=== PATIENT | female | born 1975 | race Caucasian/White ===

== ENCOUNTER 2017-03-20 02:38 | Emergency (ER) | payer BC ==
[~2017-03-20] VITALS: Ht 157.5 cm; Wt 56.4 kg
[~2017-03-20 02:38] MED LIST: ALBUAER19 INH; CETI10TA84 PO; EPP3/2 IM; FLNIN/ NAE; SNG10 PO
[2017-03-20 02:47] VITALS: TEMP 36.4; Ht 157.5 cm; Wt 56.4 kg
[2017-03-20] MEDS ORDERED: VNTHFA/IN INH (03:08)
[2017-03-20] MEDS ORDERED: SODIUM CHLORIDE 0.9% 1000ML 1,000 ML IV STA (03:13)
[2017-03-20] MEDS ORDERED: ONDANSETRON INJ 2 MG/ML 2 ML VIAL IV STA (03:13)
[2017-03-20 03:48] LABS: BASO % 0.8 %; BASO ABS # 0.08 K/uL (0-0.2); COMPLETE YES; EOS % 6.7 %; IG% 0.2 %; LYMPH % 39.4 %; LYMPH ABS # 4.05 K/uL (1.2-3.4); MEAN CELL VOLUME 91.7 fL (80-100); MEAN CORPUSCULAR HEMOGLOBIN 29.8 pg (25-34); MEAN CORPUSCULAR HGB CONC 32.4 g/dl (32-36); MEAN PLATELET VOLUME 9.6 fL (7.4-10.4); MONO % 6.5 %; NEUT % 46.4 %; PLATELET COUNT 445 K/uL (130-400); RED BLOOD COUNT 4.47 M/uL (4.2-5.4); WHITE BLOOD COUNT 10.28 K/uL (4.8-10.8)
[2017-03-20 04:06] LABS: BUN/CREATININE RATIO 17.6 (10-20); CALCIUM 8.9 mg/dl (8.5-10.1); CREATININE 0.82 mg/dl (0.60-1.20); POTASSIUM 3.7 mmol/L (3.5-5.1)
[2017-03-20 04:17] LABS: ALB/GLOB RATIO 0.9 (0.9-2); THYROID STIMULATING HORMONE 5.76 uIu/ml (0.300-4.500)
[2017-03-20 04:21] LABS: PREG INTERNAL NEGATIVE QC NEG CLEAR BACKGROUND; PREG INTERNAL POSITIVE QC POS CONTROL LINE
[2017-03-20] MEDS ORDERED: AMOXICILLIN/CLAVULANATE TAB 875 MG TAB PO ONE (05:00)
[2017-03-20] MEDS ORDERED: AMOX875T PO (05:00)
[2017-03-20] MEDS ORDERED: METH4PAK PO (05:00)
--- NOTE | 2017-03-20 05:03 | EMERGENCY ROOM VISIT NOTE ---
History First contact with patient: 02:53 Chief Complaint: HEADACHE Stated Complaint: MIGRAINE,BLURRY VISION,UPSET STOMACH, History of Present Illness The patient is a 41 year old female who presents to the Emergency Room with complaints of several headaches over the past few weeks. The patient states that over the past 3 weeks, she has had occasional difficulty opening her left eye when she wakes up in the morning. The symptoms resolve on their own. She states that she has also had intermittent headaches. She saw a neurologist for these symptoms and they scheduled her for an MRI and MRA next week. She states that today, she developed a severe headache associated with nausea and dizziness. The headache has subsided, but she states that she has some continued dizziness. She took Advil earlier this evening. She has a history of pituitary surgery. She had an MRI in 2016 and states that it was normal. She denies any neck pain/stiffness, confusion, or slurred speech. She denies any discomfort at this time. Review of Systems A complete 10 point review of systems was reviewed with the patient with pertinent positives and negatives as per history of present illness. All else were negative. Past Medical/Surgical History Medical Problems: (1) Celiac disease Surgical Problems: (1) Previous section Social History Smoking Status: Never Smoker Alcohol Use: none Current/Historical Medications Scheduled Amoxicillin & Pot Clavulanate (Augmentin 875-125 mg), 1 TAB PO BID Cetirizine (Zyrtec), 10 MG PO HS Fluticasone Propionate (Fluticasone Propionate), 2 SPRAYS DAYSI HS Methylprednisolone (Medrol Dosepak), 0 PO DAILY Montelukast Sod (Montelukast Sodium), 10 MG PO QAM Scheduled PRN Albuterol Hfa (Ventolin Hfa), 2 PUFFS INH Q4H PRN for RESCUE/ASTHMA Epinephrine (Epipen 2-Nathan), 0.3 MG IM UD PRN for ALLERGIC REACTION Allergies Uncoded Allergies: FOOD POLLEN ALLERGY SYNDROME (Allergy, Unknown, Localized swelling around mouth/itchy throat., 08/10/14) Reported by PT. Allergy related to certain tree pollens found in food. Physical Exam Vital Signs Date Time Temp Pulse Resp B/P (MAP) Pulse Ox O2 Delivery O2 Flow Rate FiO2 03/20/17 05:16 64 16 100/59 99 03/20/17 04:30 61 16 118/77 100 Room Air 03/20/17 02:47 36.4 57 18 137/81 100 Room Air Physical Exam VITALS: Vitals are noted on the nurse's note and reviewed by myself. Vital signs stable. GENERAL: This is a 41-year-old female, in no acute distress, nondiaphoretic, well-developed well-nourished. SKIN: No rashes noted. HEAD: Normocephalic atraumatic. EARS: External auditory canals clear, tympanic membranes pearly green without erythema or effusion bilaterally. EYES: Pupils equal round and reactive to light and accommodation. Conjunctivae without injection, sclerae without icterus. Extraocular movements intact. NOSE: Patent, turbinates without inflammation or discharge. No sinus tenderness. MOUTH: Mucous membranes moist. Tonsils are not enlarged. Pharynx without erythema or exudate. NECK: Supple without nuchal rigidity. No lymphadenopathy. No meningismus. HEART: Regular rate and rhythm without murmurs gallops or rubs. LUNGS: Clear to auscultation bilaterally without wheezes, rales or rhonchi. MUSCULOSKELETAL: Full range of motion and strength 5/5 throughout. NEURO: Patient was alert and oriented to person place and time. Normal sensation to light and sharp touch. Deep tendon reflexes 2+ throughout. No focal neurological deficits. Medical Decision & Procedures ER Provider Diagnostic Interpretation: CT HEAD: No evidence of acute intracranial abnormality. Extensive paranasal sinus disease involving the ethmoid, frontal, sphenoid, and visualized maxillary sinuses. Addendum: Air-fluid level in the left frontal sinus may indicate component of acute sinusitis. 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 Correlate clinically. Radiologist: Rhina Hunt MD Laboratory Results 03/20/17 03:30 Red Blood Count 4.47, Mean Corpuscular Volume 91.7, Mean Corpuscular Hemoglobin 29.8, Mean Corpuscular Hemoglobin Concent 32.4, Mean Platelet Volume 9.6, Neutrophils (%) (Auto) 46.4, Lymphocytes (%) (Auto) 39.4, Monocytes (%) (Auto) 6.5, Eosinophils (%) (Auto) 6.7, Basophils (%) (Auto) 0.8, Neutrophils # (Auto) 4.77, Lymphocytes # (Auto) 4.05, Monocytes # (Auto) 0.67, Eosinophils # (Auto) 0.69, Basophils # (Auto) 0.08 03/20/17 03:30 Test 03/20/17 03:30 White Blood Count 10.28 K/uL (4.8-10.8) Red Blood Count 4.47 M/uL (4.2-5.4) Hemoglobin 13.3 g/dL (12.0-16.0) Hematocrit 41.0 % (37-47) Mean Corpuscular Volume 91.7 fL (80-100) Mean Corpuscular Hemoglobin 29.8 pg (25-34) Mean Corpuscular Hemoglobin Concent 32.4 g/dl (32-36) Platelet Count 445 K/uL (130-400) Mean Platelet Volume 9.6 fL (7.4-10.4) Neutrophils (%) (Auto) 46.4 % Lymphocytes (%) (Auto) 39.4 % Monocytes (%) (Auto) 6.5 % Eosinophils (%) (Auto) 6.7 % Basophils (%) (Auto) 0.8 % Neutrophils # (Auto) 4.77 K/uL (1.4-6.5) Lymphocytes # (Auto) 4.05 K/uL (1.2-3.4) Monocytes # (Auto) 0.67 K/uL (0.11-0.59) Eosinophils # (Auto) 0.69 K/uL (0-0.5) Basophils # (Auto) 0.08 K/uL (0-0.2) RDW Standard Deviation 45.6 fL (36.4-46.3) RDW Coefficient of Variation 13.6 % (11.5-14.5) Immature Granulocyte % (Auto) 0.2 % Immature Granulocyte # (Auto) 0.02 K/uL (0.00-0.02) Anion Gap 6.0 mmol/L (3-11) Est Creatinine Clear Calc Drug Dose 72.2 ml/min Estimated GFR () 103.7 Estimated GFR (Non- 89.5 BUN/Creatinine Ratio 17.6 (10-20) Calcium Level 8.9 mg/dl (8.5-10.1) Total Bilirubin 0.6 mg/dl (0.2-1) Aspartate Amino Transf (AST/SGOT) 56 U/L (15-37) Alanine Aminotransferase (ALT/SGPT) 48 U/L (12-78) Alkaline Phosphatase 90 U/L (45-117) Total Protein 7.9 gm/dl (6.4-8.2) Albumin 3.7 gm/dl (3.4-5.0) Globulin 4.2 gm/dl (2.5-4.0) Albumin/Globulin Ratio 0.9 (0.9-2) Thyroid Stimulating Hormone (TSH) 5.760 uIu/ml (0.300-4.500) Human Chorionic Gonadotropin, Qual NEG (NEG) Medications Administered Medications (Trade) Dose Ordered Sig/Tania Route Start Time Stop Time Status Last Admin Dose Admin Ondansetron HCl (Zofran Inj) 4 mg NOW STAT IV 03/20/17 03:13 03/20/17 03:15 DC 03/20/17 03:35 4 MG Sodium Chloride 1,000 ml @ 999 mls/hr Q1H1M STAT IV 03/20/17 03:13 03/20/17 04:13 DC 03/20/17 03:35 999 MLS/HR Amoxicillin/ Clavulanate Potassium (Augmentin Tab) 875 mg ONE ONCE PO 03/20/17 05:00 03/20/17 05:01 DC 03/20/17 05:16 875 MG ED Course The patient was evaluated as above. Labs were drawn and IV access was obtained. Patient was medicated with 1 L normal saline solution and [address] of the head was performed and read by radiology as above. Patient was reevaluated and states her symptoms have improved. Findings were discussed with the patient. Discharge instructions were reviewed with the patient. The patient verbalized understanding of my assessment and treatment plan and was discharged home in good condition. Medical Decision The differential diagnosis includes acute intracranial bleed, meningitis, encephalitis, mass or mass effect, sinusitis, infection, tumor, MS, headache, temporal arteritis and carbon monoxide exposure, and migraine. The patient is a 41-year-old female who presents today complaining of headache and intermittent visual symptoms. Neurological exam is normal today. Labs were unremarkable. CT head did not show any acute findings, but did show extensive sinus disease and evidence of acute sinusitis. The patient will be treated for this, as it may be contributing to her symptoms. However, given the patient's intermittent vision difficulties, she certainly does need further workup as an outpatient. She has an MRI and MRA scheduled for next week. She will follow-up with the neurologist after this. She is pain-free at this time. She was encouraged to return here if she has worsening symptoms. Based on the patient's presentation and work up, I feel the patient is stable for outpatient treatment. The patient was educated to return to the emergency department for any worsening of their current condition or new/concerning symptoms. She will follow up with her neurologist and PCP. Medication reconciliation: I attest that I have personally reviewed the patient 's current medication list. Blood pressure screening: Patient was found to have normal blood pressure on screening and does not require follow-up. Impression Primary Impression: Headache Departure Information Dispostion Home / Self-Care Condition GOOD Prescriptions Methylprednisolone (MEDROL DOSEPAK) 4 Mg Nathan 0 PO DAILY, #1 PKT Prov: Flower Mark PA-C 03/20/17 Amoxicillin & Pot Clavulanate (Augmentin 875-125 mg) 1 Tab Tab 1 TAB PO BID for 10 Days, #20 TAB Prov: Flower Mark PA-C 03/20/17 Referrals No Doctor, Assigned (PCP) Patient Instructions My [facility] Additional Instructions You were prescribed Augmentin to be taken twice daily. This is an antibiotic. All antibiotics have the potential to cause diarrhea. Stop this medication and contact a medical provider if you were to develop any significant adverse side effects including: wheezing, shortness of breath, passing out, vomiting, or a diffuse rash. Always take antibiotics as directed and COMPLETE the ENTIRE course regardless of the improvement of your symptoms. You have been prescribed a Medrol Dosepak. This is a steroid which will help decrease your inflammation. Take the medicine as prescribed. Take the ENTIRE 6 day course of the steroids. Follow-up with your neurologist and primary care provider as scheduled. Return to the emergency department with worsening headache, numbness or weakness , fevers or any other new/concerning symptoms. Problem Qualifiers Primary Impression: Headache Headache type: unspecified Headache chronicity pattern: acute headache Intractability: not intractable Qualified Codes: R51 - Headache
[2017-03-20 05:16] VITALS: BP 100/59; PULSE 64; O2SAT 99
--- NOTE | 2017-03-20 07:18 | DIAGNOSTIC IMAGING REPORT ---
HEAD WITHOUT CONTRAST (CT) CT DOSE: 537.48 mGy.cm HISTORY: headaches, vision changes, hx pituitary surgery TECHNIQUE: Multiple axial CT images of the head were obtained without contrast. Comparison: Head CT 08/08/2014. Findings: No acute intracranial hemorrhage, midline shift, mass, large territorial ischemia or abnormal extra-axial collection. The calvarium is intact. Mastoid air cells and middle ear cavities are clear. Extensive maxillary, ethmoid and frontal sinus disease is present with expansion of the aforementioned sinuses. Underlying polyposis is suspected, notably within the right nasopharynx. Soft tissues are unremarkable. Orbits are symmetric. IMPRESSION: 1. No acute intracranial abnormality. 2. Extensive paranasal sinus disease with suspected polyposis of the nasopharynx. This could be correlated with direct visualization. Electronically signed by: Mark Starr 03/20/2017 7:17 AM Dictated Date/Time: 03/20/2017 7:14 AM
== END 2017-03-20 05:18 | disposition home or self-care (01) ==
LOC: C.EDB 02:39
DX: R51 Headache (principal); K90.0 Celiac disease; Z79.899 Other long term (current) drug therapy; Z91.018 Allergy to other foods

== ENCOUNTER 2017-04-20 15:58 | Emergency (ER) | payer BC ==
[~2017-04-20] VITALS: Ht 160 cm; Wt 54.3 kg
[~2017-04-20 15:58] MED LIST changes: -ALBUAER19 INH; +VNTHFA/IN INH
[2017-04-20 16:15] VITALS: TEMP 36.6; Ht 160 cm; Wt 54.3 kg
[2017-04-20] MEDS ORDERED: SODIUM CHLORIDE 0.9% 1000ML 1,000 ML IV STA (16:34)
[2017-04-20] MEDS ORDERED: ONDANSETRON INJ 2 MG/ML 2 ML VIAL IV STA (16:34)
--- NOTE | 2017-04-20 16:39 | EMERGENCY ROOM VISIT NOTE ---
History First contact with patient: 16:23 Chief Complaint: VOMITING Stated Complaint: VOMITING FOR 24 HOURS History of Present Illness The patient is a 41 year old female who presents to the Emergency Room via private vehicle with complaints of "vomiting for 24 hours". The patient states that yesterday she was at [place], and felt slightly nauseous on the car ride there. She states that she was able to enjoy herself at the park, and ate a salad at a gluten-free/allergy sensitive restaurant. She states that on the drive home, around 10:30 PM she became nauseous. Shoulder thereafter she began to vomit. She states that she vomited 3 times in the car ride home. And then vomited approximately 8 times today. Every time she tries to eat or drink she vomits. She has had 2 doses of Pepto-Bismol, and ibuprofen without relief. The only 2 symptoms are nausea and vomiting. She denies any abdominal pain, diarrhea or constipation, chest pain, shortness of breath, fevers or chills. She also has a rash on the medial aspect of the distal legs which she notes she receives every time she goes to an amusement park. Review of Systems A complete 10-point Review of Systems was discussed with the patient, with pertinent positives and negatives listed in the History of Present Illness. All remaining Review of Systems questions can be considered negative unless otherwise specified. Past Medical/Surgical History Medical Problems: (1) Celiac disease Surgical Problems: (1) Previous section Family History No pertinent. Social History Smoking Status: Never Smoker Alcohol Use: none Patient currently lives at home and is employed. Current/Historical Medications Scheduled Cetirizine (Zyrtec), 10 MG PO HS Fluticasone Propionate (Fluticasone Propionate), 2 SPRAYS DAYSI HS Montelukast Sod (Montelukast Sodium), 10 MG PO QAM Ondasetron Odt (Zofran Odt), 4 MG SL Q6H Scheduled PRN Albuterol Hfa (Ventolin Hfa), 2 PUFFS INH Q4H PRN for RESCUE/ASTHMA Epinephrine (Epipen 2-Nathan), 0.3 MG IM UD PRN for ALLERGIC REACTION Physical Exam Vital Signs Date Time Temp Pulse Resp B/P (MAP) Pulse Ox O2 Delivery O2 Flow Rate FiO2 04/20/17 22:21 68 16 114/72 98 04/20/17 20:48 72 20 112/70 98 Room Air 04/20/17 19:50 60 20 115/72 98 Room Air 04/20/17 18:20 62 20 112/70 98 Room Air 04/20/17 16:55 98 Room Air 04/20/17 16:15 36.6 70 20 112/81 98 Room Air Physical Exam VITAL SIGNS - Vital signs and nursing notes were reviewed. Afebrile, normotensive, non-tachycardic and is saturating well on room air 98%. GENERAL -41-year-old female appearing her stated age who is in no acute distress. Communicates well with provider and answers questions appropriately. SKIN - there is a nonraised erythematous rash on the medial aspect of the inferior legs bilaterally. HEAD - NC/AT. EYES - PERRL with EOMI bilaterally. Sclera anicteric. Palpebral conjunctiva pink and moist with no injection noted. EARS - No deformities of external structures noted on gross examination bilaterally. NOSE - Midline and without cyanosis. No epistaxis or purulent drainage noted. MOUTH/OROPHARYNX - Without perioral cyanosis. Buccal mucosa pink and moist and without leukoplakia. Tongue midline with equal elevation of palate bilaterally. No tonsillar hypertrophy, erythema, or exudates noted. Fair dentition noted. NECK - Neck with FROM. Supple to palpation. No lymphadenopathy noted. No nuchal rigidity. LUNGS - Chest wall symmetric without accessory muscle use, intercostals retractions, or central cyanosis. Normal vesicular breath sounds CTA B/L. No wheezes, rales, or rhonchi appreciated. CARDIAC - RRR with S1/S2. No murmur, rubs, or gallops appreciated. ABDOMEN - Abdominal contour without pulsations or visible masses. BS normoactive all four quadrants. No tenderness, palpable masses, hepatosplenomegaly, or ascites noted. EXTREMITIES - No clubbing or peripheral cyanosis. Faint rash on the medial aspect of the legs. NEUROLOGIC - Cranial nerves II through XII grossly intact. Sensory intact to light touch throughout. PSYCH - A&Ox3 and cooperates fully with examiner. Pt is very pleasant and interacts well with examiner. Medical Decision & Procedures ER Provider Diagnostic Interpretation: ABDOMINAL ULTRASOUND, RIGHT UPPER QUADRANT HISTORY: Elevated bilirubin, nausea, emesis. COMPARISON: None. FINDINGS: Pancreas: Not well visualized due to overlying bowel gas. Liver: Unremarkable. Gallbladder: [place] small amount of sludge within the gallbladder. No gallstones. No gallbladder wall thickening. CBD: 2 mm. Right kidney: No hydronephrosis. IMPRESSION: Questionable small amount of sludge within the gallbladder. No gallbladder wall thickening. No gallstones. Electronically signed by: Mj Ward M.D. 04/20/2017 8:55 PM Dictated Date/Time: 04/20/2017 8:53 PM Laboratory Results 04/20/17 16:47 Red Blood Count 4.31, Mean Corpuscular Volume 91.2, Mean Corpuscular Hemoglobin 31.1, Mean Corpuscular Hemoglobin Concent 34.1, Mean Platelet Volume 9.9, Neutrophils (%) (Auto) 70.9, Lymphocytes (%) (Auto) 19.9, Monocytes (%) (Auto) 6.1, Eosinophils (%) (Auto) 2.5, Basophils (%) (Auto) 0.5, Neutrophils # (Auto) 6.28, Lymphocytes # (Auto) 1.76, Monocytes # (Auto) 0.54, Eosinophils # (Auto) 0.22, Basophils # (Auto) 0.04 04/20/17 16:47 Test 04/20/17 16:47 04/20/17 16:56 White Blood Count 8.85 K/uL (4.8-10.8) Red Blood Count 4.31 M/uL (4.2-5.4) Hemoglobin 13.4 g/dL (12.0-16.0) Hematocrit 39.3 % (37-47) Mean Corpuscular Volume 91.2 fL (80-100) Mean Corpuscular Hemoglobin 31.1 pg (25-34) Mean Corpuscular Hemoglobin Concent 34.1 g/dl (32-36) Platelet Count 348 K/uL (130-400) Mean Platelet Volume 9.9 fL (7.4-10.4) Neutrophils (%) (Auto) 70.9 % Lymphocytes (%) (Auto) 19.9 % Monocytes (%) (Auto) 6.1 % Eosinophils (%) (Auto) 2.5 % Basophils (%) (Auto) 0.5 % Neutrophils # (Auto) 6.28 K/uL (1.4-6.5) Lymphocytes # (Auto) 1.76 K/uL (1.2-3.4) Monocytes # (Auto) 0.54 K/uL (0.11-0.59) Eosinophils # (Auto) 0.22 K/uL (0-0.5) Basophils # (Auto) 0.04 K/uL (0-0.2) RDW Standard Deviation 43.5 fL (36.4-46.3) RDW Coefficient of Variation 13.0 % (11.5-14.5) Immature Granulocyte % (Auto) 0.1 % Immature Granulocyte # (Auto) 0.01 K/uL (0.00-0.02) Anion Gap 9.0 mmol/L (3-11) Est Creatinine Clear Calc Drug Dose 81.4 ml/min Estimated GFR () 113.7 Estimated GFR (Non- 98.1 BUN/Creatinine Ratio 19.5 (10-20) Calcium Level 9.2 mg/dl (8.5-10.1) Magnesium Level 2.0 mg/dl (1.8-2.4) Total Bilirubin 1.5 mg/dl (0.2-1) Aspartate Amino Transf (AST/SGOT) 25 U/L (15-37) Alanine Aminotransferase (ALT/SGPT) 32 U/L (12-78) Alkaline Phosphatase 87 U/L (45-117) Total Protein 8.1 gm/dl (6.4-8.2) Albumin 4.0 gm/dl (3.4-5.0) Globulin 4.1 gm/dl (2.5-4.0) Albumin/Globulin Ratio 1.0 (0.9-2) Lipase 194 U/L (73-393) Thyroid Stimulating Hormone (TSH) 1.100 uIu/ml (0.300-4.500) Human Chorionic Gonadotropin, Qual NEG (NEG) Urine Color YELLOW Urine Appearance CLEAR (CLEAR) Urine pH 7.0 (4.5-7.5) Urine Specific [place] 1.017 (1.000-1.030) Urine Protein NEG (NEG) Urine Glucose (UA) NEG (NEG) Urine Ketones 2+ (NEG) Urine Occult Blood NEG (NEG) Urine Nitrite NEG (NEG) Urine Bilirubin NEG (NEG) Urine Urobilinogen NEG (NEG) Urine Leukocyte Esterase NEG (NEG) Medications Administered Medications (Trade) Dose Ordered Sig/Tania Route Start Time Stop Time Status Last Admin Dose Admin Sodium Chloride 1,000 ml @ 999 mls/hr Q1H1M STAT IV 04/20/17 16:34 04/20/17 17:34 DC 04/20/17 16:55 999 MLS/HR Ondansetron HCl (Zofran Inj) 4 mg NOW STAT IV 04/20/17 16:34 04/20/17 16:37 DC 04/20/17 16:55 4 MG Ondansetron HCl (ZOFRAN ODT 4MG Home Pack) 1 homepack UD STAT PO 04/20/17 21:36 04/20/17 21:37 DC 04/20/17 21:36 1 HOMEPACK Medical Decision Patient was seen and evaluated as above. After obtaining a thorough history and physical examination IV access was initiated, and the above workup was performed. She presents to us today with nausea and vomiting 24 hours. No other symptoms, other than a rash on the inside of her legs. She states she gets this every time she [place] to an amusement park, and is the same. CBC reveals no leukocytosis or anemia. CMP reveals bilirubin high at 1.5, no other emergent abnormalities. TSH unremarkable. Urine test negative. Urine reveals ketones, otherwise negative. She was given 4 mg of Zofran, and 1 L of normal saline, was reevaluated and was feeling much better. By mouth fluid trial was initiated. She passed without difficulty. She was then given a diet specific to what she is able tolerate. She was reevaluated and feeling much better. Gallbladder ultrasound was obtained secondary to the elevated bilirubin. This was negative for acute process. Results were discussed with the patient. She was reevaluated, and appears stable for outpatient management. She was educated upon worrisome symptoms which to return, is to follow-up with her family doctor into his visit, had questions on discharge, and was discharged home in good condition. She was given Zofran for discharge. In the evaluation and treatment this patient following differential diagnoses were entertained: Acute cholecystitis, viral gastroenteritis, equilibrium imbalance, among others. Impression Primary Impression: nausea Additional Impression: Vomiting Departure Information Dispostion Home / Self-Care Condition GOOD Prescriptions Ondasetron Odt (ZOFRAN ODT) 4 Mg Tab 4 MG SL Q6H for Nausea, #15 TAB Prov: Neil Avery, GM 04/20/17 Referrals Gisselle Roca M.D. (PCP) Patient Instructions My [facility] Additional Instructions You have been treated in the Emergency Department your nausea and vomiting. Laboratory results and imaging studies have ruled out any emergent causes for your symptoms which would warrant admission or surgery. You have been prescribed Zofran to be used for any nausea or vomiting. Take as prescribed. Please consume a bland diet over the next few days. Drink plenty of water and stay well hydrated. As with any trip to the Emergency Department, you should follow-up with your Primary Care Provider from today's visit. Return to the emergency department if your symptoms persist despite treatment plan outlined above or if the following symptoms occur: increased fevers, chills , worsening nausea/vomiting, blood in your stool or urine. Please return to the emergency department with any new/concerning symptoms. Problem Qualifiers
[2017-04-20 16:55] VITALS: O2SAT 98
[2017-04-20 16:56] LABS: BASO % 0.5 %; BASO ABS # 0.04 K/uL (0-0.2); COMPLETE YES; EOS % 2.5 %; HEMATOCRIT 39.3 % (37-47); IG% 0.1 %; LYMPH % 19.9 %; LYMPH ABS # 1.76 K/uL (1.2-3.4); MEAN CELL VOLUME 91.2 fL (80-100); MEAN CORPUSCULAR HEMOGLOBIN 31.1 pg (25-34); MEAN CORPUSCULAR HGB CONC 34.1 g/dl (32-36); MEAN PLATELET VOLUME 9.9 fL (7.4-10.4); MONO % 6.1 %; NEUT % 70.9 %; PLATELET COUNT 348 K/uL (130-400); RED BLOOD COUNT 4.31 M/uL (4.2-5.4); WHITE BLOOD COUNT 8.85 K/uL (4.8-10.8)
[2017-04-20 17:05] LABS: URINE APPEARANCE CLEAR (CLEAR); URINE BILIRUBIN NEG (NEG); URINE COLOR YELLOW; URINE NITRITE NEG (NEG); URINE SPECIFIC GRAVITY 1.017 (1.000-1.030); UROBILINOGEN NEG (NEG); ZZUR CULT IF INDIC CLEAN CATCH NO
[2017-04-20 17:10] LABS: MANUAL MICROSCOPIC REQUIRED? NO; REVIEW REQ? NO
[2017-04-20 17:13] LABS: PREG INTERNAL NEGATIVE QC NEG CLEAR BACKGROUND; PREG INTERNAL POSITIVE QC POS CONTROL LINE
[2017-04-20 17:16] LABS: BUN/CREATININE RATIO 19.5 (10-20); CALCIUM 9.2 mg/dl (8.5-10.1); CREATININE 0.76 mg/dl (0.60-1.20); POTASSIUM 3.5 mmol/L (3.5-5.1)
[2017-04-20 17:27] LABS: THYROID STIMULATING HORMONE 1.1 uIu/ml (0.300-4.500)
--- NOTE | 2017-04-20 20:56 | DIAGNOSTIC IMAGING REPORT ---
ABDOMINAL ULTRASOUND, RIGHT UPPER QUADRANT HISTORY: Elevated bilirubin, nausea, emesis. COMPARISON: None. FINDINGS: Pancreas: Not well visualized due to overlying bowel gas. Liver: Unremarkable. Gallbladder: [place] small amount of sludge within the gallbladder. No gallstones. No gallbladder wall thickening. CBD: 2 mm. Right kidney: No hydronephrosis. IMPRESSION: Questionable small amount of sludge within the gallbladder. No gallbladder wall thickening. No gallstones. Electronically signed by: Mj Ward M.D. 04/20/2017 8:55 PM Dictated Date/Time: 04/20/2017 8:53 PM
[2017-04-20] MEDS ORDERED: ONDANSETRON HOME PACK 4MG OD TAB PO STA (21:36)
[2017-04-20] MEDS ORDERED: ONDA4TAB10 SL (21:37)
[2017-04-20 22:21] VITALS: BP 114/72; PULSE 68; O2SAT 98
== END 2017-04-20 22:21 | disposition home or self-care (01) ==
LOC: C.EDB 15:59 → C.EDC 22:21
DX: R11.2 Nausea with vomiting, unspecified (principal); K90.0 Celiac disease; Z79.899 Other long term (current) drug therapy